=== PATIENT | female | born 1940 | race Caucasian/White ===

== ENCOUNTER 2019-12-28 12:54 | Emergency (ER) | payer MEDICARE, OTHER ==
[~2019-12-28] VITALS: Ht 160 cm; Wt 69.9 kg
--- NOTE | 2019-12-28 12:55 | NUR ---
Patient to ER bed 2 to gown for evaluation. Side rails up.
[2019-12-28 13:02] VITALS: BP_SYST 159
--- NOTE | 2019-12-28 13:05 | NUR ---
Patient presented to ER C/O Generalized weakness. Patient A&Ox4, skin pink & warm, denies pain, denies N/V/D. Patient states she has body aches, decreased appetite for past 10 days, upper back pain reported and intermittent non productive cough.
[2019-12-28] MEDS ORDERED: NACL 0.9% 1,000 ML IV ONE (13:15)
--- NOTE | 2019-12-28 13:15 | NUR ---
ER Dr. Garcia at bedside examining patient.
[2019-12-28 13:58] LABS: BASOPHILS % (AUTO) 0.6 % (0.0-2.0); EOSINOPHILS # (AUTO) 0.1 K/uL (0.0-0.4); EOSINOPHILS % (AUTO) 0.7 % (0.0-4.0); HEMATOCRIT 41.7 % (36-48); HEMOGLOBIN 14.1 g/dL (12.0-16.0); LYMPHOCYTES # (AUTO) 1.6 K/uL (1.0-5.5); LYMPHOCYTES % (AUTO) 20.5 % (20.5-51.5); MEAN CORPUSCULAR HEMOGLOBIN 31 pg (27-31); MEAN CORPUSCULAR HGB CONC 34 % (32-36); MEAN CORPUSCULAR VOLUME 92 fL (79.0-98.0); MONOCYTES # (AUTO) 0.5 K/uL (0.0-1.0); MONOCYTES % (AUTO) 7.1 % (1.7-9.3); NEUTROPHILS # (AUTO) 5.4 K/uL (1.8-7.7); NEUTROPHILS % (AUTO) 71.1 % (40.0-70.0); PLATELET COUNT (AUTO) 256 K/uL (130-430); RED BLOOD CELL COUNT(AUTO) 4.54 MIL/uL (4.2-6.2); WHITE BLOOD COUNT (AUTO) 7.6 K/uL (4.8-10.8)
[2019-12-28 14:12] LABS: ANION GAP 9 (5-15); CHLORIDE 90 mmol/L (98-107); CREATININE 1.31 mg/dL (0.55-1.30); GLUCOSE 153 mg/dL (70-99); POTASSIUM 3.3 mmol/L (3.5-5.1); SODIUM SERUM 125 mmol/L (136-145); UREA NITROGEN, BLOOD 16 mg/dL (8-21)
--- NOTE | 2019-12-28 14:15 | NUR ---
Report to Clovis RODRIGUEZ
[2019-12-28 14:16] LABS: PROTHROMBIN TIME 10.4 SECS (9.5-12.5)
[2019-12-28 14:27] LABS: ALANINE AMINOTRANSFERASE 20 U/L (12-78); ALBUMIN 4.1 g/dL (3.4-4.8); AMYLASE 42 U/L (0-100); ASPARTATE AMINOTRANSFERASE 13 U/L (10-37); FREE T4 (FREE THYROXINE) 1.1 ng/dL (0.6-1.6); LIPASE 71 U/L (73-393); THYROID STIMULATING HORMONE 0.75 uIu/mL (0.34-4.82); TOTAL BILIRUBIN 0.5 mg/dL (0.0-1.0)
--- NOTE | 2019-12-28 14:50 | NUR ---
REPORT FROM GERI RODRIGUEZ
[2019-12-28 15:21] LABS: BILIRUBIN,URINE NEGATIVE (NEGATIVE); BLOOD, URINE NEGATIVE (NEGATIVE); CLARITY/URINE CLEAR (CLEAR); COLOR,URINE YELLOW (YELLOW); GLUCOSE,URINE NEGATIVE (NEGATIVE); KETONES,URINE NEGATIVE (NEGATIVE); NITRITE, URINE NEGATIVE (NEGATIVE); PROTEIN URINE NEGATIVE (NEGATIVE); UROBILINOGEN,URINE 0.2 (0.2-1.0)
[2019-12-28 15:31] LABS: LEUKOCYTE ESTERASE ,URINE NEGATIVE (NEGATIVE)
--- NOTE | 2019-12-28 15:45 | NUR ---
REENA LOPEZ, SON OF PATIENT NOTIFED DISCHARGE VIA TELEPHONE.
--- NOTE | 2019-12-28 16:08 | NUR ---
Patient given written and verbal discharge instructions and verbalizes understanding. ER MD discussed with patient the results and treatment provided. Patient in stable condition. ID arm band removed. IV catheter removed intact and dressing applied, no active bleeding. Rx of PEPCID given. Patient educated on pain management and to follow up with PMD. Pain Scale 0/10. Opportunity for questions provided and answered. Medication side effect fact sheet provided.
[2019-12-28 16:09] VITALS: BP_SYST 163
== END 2019-12-28 16:09 | disposition home or self-care (01) ==
LOC: SED 12:54
DX: R53.1 Weakness (principal); E87.1 Hypo-osmolality and hyponatremia; K29.70 Gastritis, unspecified, without bleeding; I10 Essential (primary) hypertension
CPT/HCPCS: 36415; 71045; 80053; 81003; 82150; 82550; 83605; 83690; 83880; 84439; 84443; 84479; 84484; 85025; 85610; 85730; 86710; 87040; 93005; 96360; 99285; J7030

== ENCOUNTER 2023-04-26 10:58 | Emergency (ER) | payer MEDICARE, OTHER ==
[~2023-04-26] VITALS: Ht 157.5 cm; Wt 54.4 kg
[2023-04-26 11:20] VITALS: PULSE 77; RESP 18; TEMP 98.3; O2SAT 98
[2023-04-26] MEDS ORDERED: IBUPROFEN 600 MG TABLET PO ONE (11:30)
[2023-04-26 11:41] LABS: BASOPHILS % (AUTO) 0.5 % (0.0-2.0); EOSINOPHILS # (AUTO) 0.1 K/uL (0.0-0.4); EOSINOPHILS % (AUTO) 0.8 % (0.0-4.0); HEMATOCRIT 40.1 % (36-48); HEMOGLOBIN 13.2 g/dL (12.0-16.0); LYMPHOCYTES # (AUTO) 1.8 K/uL (1.0-5.5); LYMPHOCYTES % (AUTO) 19.3 % (20.5-51.5); MEAN CORPUSCULAR HEMOGLOBIN 31 pg (27-31); MEAN CORPUSCULAR HGB CONC 33 % (32-36); MEAN CORPUSCULAR VOLUME 93 fL (79.0-98.0); MONOCYTES # (AUTO) 0.6 K/uL (0.0-1.0); MONOCYTES % (AUTO) 6.7 % (1.7-9.3); NEUTROPHILS # (AUTO) 6.7 K/uL (1.8-7.7); NEUTROPHILS % (AUTO) 72.7 % (40.0-70.0); PLATELET COUNT (AUTO) 263 K/uL (130-430); RED BLOOD CELL COUNT(AUTO) 4.31 MIL/uL (4.2-6.2); RED CELL DISTRIBUTION WIDTH 13.2 % (9.0-15.0); WHITE BLOOD COUNT (AUTO) 9.3 K/uL (4.8-10.8)
[2023-04-26] MEDS ORDERED: NACL 0.9% 1,000 ML IV ONE (11:45)
[2023-04-26 12:00] LABS: PROTHROMBIN TIME 10.6 SECS (9.5-12.5)
[2023-04-26 12:10] LABS: ACETONE, SERUM NEGATIVE (NEGATIVE)
[2023-04-26 12:18] LABS: ANION GAP 8 (5-15); CALCIUM 9.6 mg/dL (8.4-11.0); CARBON DIOXIDE 25 mmol/L (23-29); CHLORIDE 100 mmol/L (98-107); CREATININE 1.36 mg/dL (0.55-1.30); GLUCOSE 120 mg/dL (74-106); POTASSIUM 3.7 mmol/L (3.5-5.1); SODIUM SERUM 133 mmol/L (136-145); UREA NITROGEN, BLOOD 23 mg/dL (8-21)
[2023-04-26 12:22] LABS: ALANINE AMINOTRANSFERASE 13 U/L (12-78); ASPARTATE AMINOTRANSFERASE 17 U/L (10-37); CREATINE KINASE, TOTAL 18 U/L (26-192); FREE T4 (FREE THYROXINE) 1.5 ng/dL (0.6-1.6); LIPASE 61 U/L (73-393); THYROID STIMULATING HORMONE 1.38 uIu/mL (0.34-4.82); TOTAL BILIRUBIN 0.5 mg/dL (0.0-1.0); TOTAL PROTEIN, SERUM 7.5 g/dL (6.4-8.3)
[2023-04-26 12:52] LABS: BILIRUBIN,URINE NEGATIVE (NEGATIVE); BLOOD, URINE NEGATIVE (NEGATIVE); CLARITY/URINE Clear (CLEAR); COLOR,URINE YELLOW (YELLOW); GLUCOSE,URINE NEGATIVE (NEGATIVE); LEUKOCYTE ESTERASE ,URINE NEGATIVE (NEGATIVE); NITRITE, URINE NEGATIVE (NEGATIVE); PROTEIN URINE NEGATIVE (NEGATIVE); UROBILINOGEN,URINE 0.2 (0.2-1.0)
[2023-04-26 12:53] LABS: KETONES,URINE TRACE (NEGATIVE)
[2023-04-26] MEDS ORDERED: TRAM50TA2 PO (13:25)
[2023-04-26] MEDS ORDERED: IBUP-1969 PO (13:25)
[2023-04-26 14:14] VITALS: BP_SYST 167; PULSE 77; RESP 18; TEMP 98.3; O2SAT 98
== END 2023-04-26 14:13 | disposition home or self-care (01) ==
LOC: SED 10:58
DX: K80.20 Calculus of gallbladder without cholecystitis without obstruction (principal); R53.1 Weakness; R20.2 Paresthesia of skin; M25.512 Pain in left shoulder; R10.9 Unspecified abdominal pain; I10 Essential (primary) hypertension; E78.5 Hyperlipidemia, unspecified; Z79.899 Other long term (current) drug therapy
CPT/HCPCS: 99285; 70450; 96360; 71045; 80053; 82009; 82550; 84439; 83690; 84443; 85025; 85610; 85730; 84484; 36415; 93005; 76376; 74176; 83605; 81003; J7030